=== PATIENT | male | born 1965 | race American Indian/Alaskan Native ===

== ENCOUNTER 2017-04-01 12:11 | Emergency (ER) | payer OTHER ==
[2017-04-01 12:26] VITALS: BP 139/97
[2017-04-01] MEDS ORDERED: XYLOCAINE 1%/ EPI 1:100,000 INFILTRATI ONE (13:24)
[2017-04-01] MEDS ORDERED: NACL 0.9% IR ONE (13:24)
[2017-04-01] MEDS ORDERED: BOOSTRIX IM ONE (13:24)
--- NOTE | 2017-04-01 13:51 | Cat Scan Report ---
CT HEAD WITHOUT CONTRAST: HISTORY: Closed head injury. Serial contiguous axial images were obtained through the cranium. Intravenous contrast material was not administered. The ventricles are normal in size and appearance. There is no mass effect or midline shift. No areas of abnormally increased or decreased attenuation are seen. 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 No mass lesion is seen. There is moderate mucosal thickening throughout the ethmoid air cells. The remaining sinuses and mastoid air cells are clear. No obvious calvarial fracture. IMPRESSION: No acute intracranial process is appreciated.
--- NOTE | 2017-04-01 13:52 | Cat Scan Report ---
CT SCAN OF THE CERVICAL SPINE: HISTORY: Neck injury, pain. TECHNIQUE: Contiguous 1.25 mm axial images of the cervical spine were obtained. Sagittal and coronal reformatted images. FINDINGS: There is normal alignment of the cervical spine. The body, pedicles and posterior ligaments appear normal. No evidence of fracture or subluxation is seen. Mild to moderate degenerative disc disease is noted at C5-6 and C6-7. The spinal canal appears normal. The prevertebral soft tissues appear normal. IMPRESSION: Degenerative changes. No acute process is noted.
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
[2017-04-01] MEDS ORDERED: TRIPLE ANTIBIOTIC TP ONE (15:16)
[2017-04-01] MEDS ORDERED: MOTRIN PO ONE (15:16)
== END 2017-04-01 15:40 ==
LOC: ED 12:11 → EEVIPCON 12:11 → ED 15:40
DX: S09.90XA Unspecified injury of head, initial encounter (principal); S01.01XA Laceration without foreign body of scalp, initial encounter; Z23 Encounter for immunization; F17.200 Nicotine dependence, unspecified, uncomplicated; Y04.8XXA Assault by other bodily force, initial encounter; Y93.89 Activity, other specified; Y99.8 Other external cause status; Y92.009 Unspecified place in unspecified non-institutional (private) residence as the place of occurrence of the external cause
CPT/HCPCS: 70450; 72125; 90471; 90715; A6250

== ENCOUNTER 2017-04-10 08:53 | Emergency (ER) | payer SELFPAY ==
[2017-04-10 09:01] VITALS: BP 146/104
[2017-04-10] MEDS ORDERED: CATAPRES PO ONE (09:44)
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
== END 2017-04-10 09:59 | disposition home or self-care (01) ==
LOC: ED 08:53
DX: I10 Essential (primary) hypertension (principal); F17.200 Nicotine dependence, unspecified, uncomplicated
CPT/HCPCS: 99282